=== PATIENT | female | born 2000 | race Caucasian/White ===

== ENCOUNTER 2022-10-12 20:53 | Emergency (ER) | payer BC, SELFPAY ==
[2022-10-12 21:01] VITALS: BP 121/79; PULSE 72; RESP 18; TEMP 36.1; O2SAT 98; BMI 34.5
--- NOTE | 2022-10-12 21:36 | ED_ITS ---
HPI - General Adult General Time Seen by Provider: 21:36 Date Seen: 10/12/22 Chief complaint: Unspecified Complaint, Adult Stated complaint: Arms are numb and feeling dizzy Time Seen by Provider: 10/12/22 21:35 Source: patient and RN notes reviewed Mode of arrival: ambulatory Limitations: no limitations History of Present Illness HPI narrative: This 22-year-old female is coming in with concern of her whole body feeling numb, feeling weak in context of taking Excedrin. She has taken Excedrin for migraines before. She has a history of having migraines that actually caused syncope, did see Neurology in [place] before. She recollects that she maybe had an MRI or maybe a CT, cannot completely remember. Sounds if they wanted her to do some other imaging??? She really is not sure. She recollects that they wondered if there could be some tumor or something causing the headaches and the syncope. Her symptoms today are bit more reminiscent of those types of headaches. The Excedrin did take away the headache. She has never had side effects if that is what this was. She had some chest tightness after taking the medicine, lasted maybe an hour. The headache and the chest tightness or gone. Chest tightness was maybe around for 430. This was hours ago. She has not been sick with anything, no cough or cold symptoms, no fevers. She has been able to use her arms and legs but they feel tingly. She can still feel me touch in things touch her they just feel different. It is both arms and both legs. She uses Nexplanon for contraception. Related Data Home Medications Medication Instructions Recorded Confirmed No Known Home Medications 10/12/22 10/12/22 Allergies Allergy/AdvReac Type Severity Reaction Status Date / Time No Known Drug Allergies Allergy Verified 10/12/22 21:05 Review of Systems Status of ROS: Reports: 6 or more systems reviewed and unremarkable except as noted in History and below [facility] Social History Smoking Status: Never smoker Do you use any of these nicotine containing products: None Non-prescribed substance use: denies use Exam Const: Vital Signs, click to edit/add: Vital Signs - 24 hr 10/12/22 21:01 10/12/22 21:52 Temperature 97 F L Pulse Rate [Right Pulse Oximeter] 72 Respiratory Rate 18 Blood Pressure [Ri ght Upper Arm] 121/79 Pulse Oximetry 98 98 Oxygen Delivery Me thod Room Air Documenting provider has reviewed patient's vital signs: yes Common normals: no apparent distress, average body habitus, oriented x3, no limitations, healthy appearing, alert and well nourished General appearance: cooperative, comfortable, well kempt and well developed HENMT: Common normals: normocephalic, head/scalp atraumatic, hearing grossly normal bilaterally, external ears normal and external nose normal Head and scalp: normocephalic and atraumatic Face and sinus: normal facial exam Nose: external nose normal External ear: external ears normal Eye: Common normals: PERRL, EOMs intact bilaterally, conjunctivae normal and no scleral icterus Conjunctiva: conjunctiva(e) normal Pupil: PERRL Neck & C-Spine: Common normals: full ROM, no lymphadenopathy, supple, no meningeal signs, no JVD and thyroid normal Thyroid: thyroid normal Chest: Common normals: inspection of chest normal and palpation of chest normal Resp: Common normals: normal respiratory effort, no retractions, no use of accessory muscles and clear to auscultation bilaterally Effort & inspection: able to speak in complete sentences Auscultation: clear to auscultation bilaterally Cardio: Common normals: no JVD, regular rate, regular rhythm, S1 normal heart sound, S2 normal heart sound, no gallops, no clicks and no murmurs Rate: regular rate Rhythm: regular rhythm Heart sounds: S1 normal and S2 normal GI: Common normals: Normal to inspection, nondistended, normoactive bowel sounds present, soft to palpation, non-tender, no hepatosplenomegaly and no masses Palpation: soft and no hepatosplenomegaly Extremity: Common normals: normal to inspection, full ROM, normal capillary refill, no joint enlargement, no clubbing, cyanosis or edema, no calf tenderness and no pedal edema Neuro: Loren Coma Scale: document GCS findings [place] coma scale eye o pening: Spontaneous (4) Loren coma scale verbal response: Orientated (5) [place] coma scale motor response: Obey commands (6) [place] coma scale total score: 15 Common normals: oriented x3, CN's II-XII intact bilaterally, moves all extremities, no focal motor deficits, no sensory deficits noted (Can feel me touching with light touch throughout) and gait normal Sensorium/orientation: alert Meningeal signs: no meningeal signs Psych: Appearance: well kempt Course Course Hospital Course: Will have her on monitoring to ensure no arrhythmia, no hypoxia. Will get baseline lab work including a troponin. Solitary troponin should be sufficient here. She is on progesterone only contraception. Did discuss doing head CT but feel that this is not likely to yield any significant concerning findings. Her sense of numbness throughout her body would not point to a focal deficit. It is doubtful that a head CT is going to give us significant findings in my opinion. If she is going to worry and feels that when she remembers from the past about possibly having imaging, we certainly can do a head CT. She is going to consider this. I reviewed with her that I cannot do MRI at this time nor do I feel her symptoms would warrant an emergent MRI. Reevaluation(s) Time of Reevaluation #1: 22:30 Reevaluation #1: Reviewed normal lab findings with patient. At this time she really does not want to proceed with head CT. Did review with her that clinically with current symptoms do not really feel head CT is worth the risk of the radiation from the imaging. Certainly if she is worsening, has further issues, can return and this always could be considered. She could follow up outpatient as well and discussed possibility of MRI imaging done on an outpatient and not emergent basis which could be a consideration. She is overall feeling better, prior and discharge to home. Vital Signs Vital signs: Initial Vital Signs Temperature 97 F L 10/12/22 21:01 Temperature Source Temporal Artery Scan 10/12/22 21:01 Pulse Rate 72 10/12/22 21:01 Respiratory Rate 18 10/12/22 21:01 Blood Pressure 121/79 10/12/22 21:01 Blood Pressure Mean 93 10/12/22 21:01 Blood Pressure Position Sitting 10/12/22 21:01 Pulse Oximetry 98 10/12/22 21:01 Oxygen Delivery Method Room Air 10/12/22 21:01 Vital Signs Temperature 97 F L 10/12/22 21:01 Pulse Rate 72 10/12/22 21:01 Respiratory Rate 18 10/12/22 21:01 Blood Pressure 121/79 10/12/22 21:01 Pulse Oximetry 98 10/12/22 21:01 Oxygen Delivery Method Room Air 10/12/22 21:01 Temperature 97 F L 10/12/22 21:01 Pulse Rate 72 10/12/22 21:01 Respiratory Rate 18 10/12/22 21:01 Blood Pressure 121/79 10/12/22 21:01 Pulse Oximetry 98 10/12/22 21:52 Oxygen Delivery Method Room Air 10/12/22 21:01 Medical Decision Making Lab Data Labs: Lab Results 10/12/22 10/12/22 Range/Units 21:52 22:00 WBC 7.29 (4.50-11.00) K/uL RBC 4.66 (4.00-5.20) m/uL Hgb 13.9 (12.0-16.0) gm/dL Hct 41.7 (33.0-51.0) % MCV 90 (80-100) fL MCH 30 (26-34) pg MCHC 33 (32-36) gm/dL RDW Coeff of Jaida 12.5 (11.5-15.5) % Plt Count 331 (140-440) K/uL Neut % (Auto) 52.0 (42.0-72.0) % Lymph % (Auto) 39.6 (20-44) % [place] % (Auto) 5.6 (0.0-11.0) % Eos % (Auto) 1.4 (0.0-7.0) % Baso % (Auto) 0.7 (0.0-3.0) % Neut # (Auto) 3.79 (1.7-7.0) K/uL Lymph # (Auto) 2.89 (0.90-2.90) K/uL [place] # (Auto) 0.40 (0.00-0.90) K/UL Eos # (Auto) 0.10 (0.00-0.50) K/uL Baso # (Auto) 0.05 (0.00-0.30) K/uL Abs Immat Gran (auto) 0.05 (0.00-0.30) K/uL Imm/Tot Granulo (auto) 0.7 % Sodium 139 (135-149) mmol/L Potassium 3.6 (3.6-5.1) mmol/L Chloride 108 (96-114) mmol/L Carbon Dioxide 21 (20-32) mmol/L BUN 15 (5-24) mg/dL Creatinine 0.8 (0.5-1.5) mg/dL Estimated Creat Clear 109.08 Estimated GFR 108 ml/min Glucose 90 (60-115) mg/dL Total Bilirubin 0.6 (0.1-1.5) mg/dL AST 41 H (12-35) U/L ALT 23 (4-35) U/L Alkaline Phosphatase 72 (40-150) U/L Total Protein 7.3 (6.0-8.3) g/dL Albumin 4.3 (3.3-5.0) g/dL POC Troponin I 0.00 L (0.01-0.04) ng/ml ECG Data Attestation: I personally reviewed and interpreted this ECG as follows: (Normal sinus rhythm, 64 beats per minute. No evidence of any ischemia. QT corrected 402 milliseconds.) Prior ECG tracings: not available for review Discharge Plan Discharge Clinical Impression: Numbness and tingling, Headache, migraine, Chest tightness Patient Disposition: Home, Self-Care Condition: Stable Instructions: Migraine Headache (ED), Paresthesia (ED), Noncardiac Chest Pain (ED) Additional Instructions: Recheck with primary care provider as soon as you are able to, preferably within the next week. Recommend going home and resting tonight, stay hydrated and get adequate sleep. As far is imaging for patients with underlying headache disorders, head CT verses MRI are the considerations. Given your nonfocal neuro logic examination, do not think the risk radiation from imaging with CT is warranted at this time. MRI imaging might be considered especially given your history of seen Neurology before. Maybe your primary care provider could ascertain those prior records and see what was recommended. In the meantime, if you feel you are worsening or have further concerning symptoms, we are always here in the ER to re-evaluate. Activity Level: Activity as Tolerated Prescriptions: No Action No Known Home Medications Follow Up/Referrals: Provider,Not a Local [Primary Care Provider] - Stand Alone Forms: [employer]fluence Info Instructions
[2022-10-12 21:52] VITALS: O2SAT 98
[2022-10-12 22:24] LABS: Chloride* 108 mmol/L (96-114)
[2022-10-12 22:25] LABS: Albumin* 4.3 g/dL (3.3-5.0); Potassium* 3.6 mmol/L (3.6-5.1); Sodium* 139 mmol/L (135-149)
[2022-10-12 22:27] LABS: Creatinine* 0.8 mg/dL (0.5-1.5); Est. Creatinine Clearance* 109.08; Estimated Glomerular Filt Rate 108 ml/min
[2022-10-12 22:28] LABS: Alanine Aminotransferase* 23 U/L (4-35); Alkaline Phosphatase* 72 U/L (40-150); Aspartate Amino Transferase* 41 U/L (12-35); Bilirubin Total* 0.6 mg/dL (0.1-1.5); Blood Urea Nitrogen* 15 mg/dL (5-24); Carbon Dioxide* 21 mmol/L (20-32); Glucose* 90 mg/dL (60-115); Total Protein* 7.3 g/dL (6.0-8.3)
[2022-10-12 22:32] LABS: Basophils Absolute Auto 0.05 K/uL (0.00-0.30); Basophils Percent Auto 0.7 % (0.0-3.0); Eosinophils Percent Auto 1.4 % (0.0-7.0); Hematocrit 41.7 % (33.0-51.0); Hemoglobin* 13.9 gm/dL (12.0-16.0); Immature Granulocytes Abs Auto 0.05 K/uL (0.00-0.30); Immature Granulocytes Pct Auto 0.7 %; Lymphocytes Absolute Auto 2.89 K/uL (0.90-2.90); Lymphocytes Percent Auto 39.6 % (20-44); Mean Corpuscular HGB Conc 33 gm/dL (32-36); Mean Corpuscular Hemoglobin 30 pg (26-34); Mean Corpuscular Volume 90 fL (80-100); Monocytes Percent Auto 5.6 % (0.0-11.0); Neutrophils Absolute Auto 3.79 K/uL (1.7-7.0); Platelet Count* 331 K/uL (140-440); RDW Coefficient of Variation % 12.5 % (11.5-15.5); Red Blood Count 4.66 m/uL (4.00-5.20); White Blood Count* 7.29 K/uL (4.50-11.00)
[2022-10-12 22:34] LABS: Slide Review Reflex No
[2022-10-12 23:22] VITALS: BP 120/77; PULSE 70; RESP 18; TEMP 36.3; O2SAT 100
--- NOTE | 2022-10-12 23:23 | PC.NURSE ---
patient DC with boyfriend, no further questions about DC instructions. all belongings sent with patient home.
== END 2022-10-12 23:22 | disposition home or self-care (01) ==
PROVIDERS: Emergency Provider Family Medicine
DX: R07.89 Other chest pain (principal); R20.0 Anesthesia of skin; G43.909 Migraine, unspecified, not intractable, without status migrainosus
CPT/HCPCS: 36415; 80053; 84484; 85025; 93005; 94761; 99284